=== PATIENT | female | born 1945 | race African-American/Black ===

== ENCOUNTER 2025-04-03 19:47 | Inpatient (IN) | payer MEDICAID, MEDICARE ==
[~2025-04-03] VITALS: Ht 172.7 cm; Wt 86.2 kg
[2025-04-03 19:47] VITALS: PULSE 103; RESP 29; O2SAT 99
[~2025-04-03 19:47] MED LIST: ALBU05 IH; AMIN1CAP5 PO; ASCO100T12 MT; ATROV INH; COLL2POW MC; DOCU-422 MT; FAMO40TA7 PO; GABA250S11 PO; HJ10 IJ; LIP40 MT; METO25TA6 MT; MIDO5TAB4 MT
[2025-04-03 19:51] VITALS: O2SAT 99
[2025-04-03] MEDS ORDERED: CEFEPIME 1GM IN DEXT 5% 50ML IV ONE (20:00)
[2025-04-03] MEDS: SODIUM CHLORIDE 0.9% (SEPSIS BOLUS) IV ONE (20:18)
[2025-04-03 20:23] LABS: HEMATOCRIT. 33.3 % (36.0-48.0); HEMOGLOBIN. 12.1 g/dL (12.0-16.0); MEAN PLATELET VOLUME 10.5 fl (7.4-10.4); PLATELET 121 x1000/uL (130-400); RED BLOOD CELL COUNT 3.25 mill/uL (4.2-5.4); RED CELL DISTRIBUTION WIDTH 15.1 % (11.6-14.6)
[2025-04-03] MEDS: CEFEPIME 1GM PREMIX 50ML IV SCH (20:25)
[2025-04-03 20:41] LABS: UREA NITROGEN BLOOD 42 mg/dL (9-23)
[2025-04-03 20:42] LABS: ASPARTATE AMINOTRANSFERASE 35 IU/L (<34)
[2025-04-03 20:43] LABS: BILIRUBIN DIRECT 0.3 mg/dL (<=3.0); BILIRUBIN TOTAL 0.7 mg/dL (0.1-1.0); CREATININE 1.8 mg/dL (0.6-1.0); PROTEIN TOTAL 6.6 g/dL (6.0-8.3)
[2025-04-03 20:49] LABS: TROPONIN I HIGH SENSITIVITY 1004 ng/L (3.0-34)
[2025-04-03] MEDS: VANCOMYCIN 1G PREMIX 200 ML IV ONE (20:57)
[2025-04-03] MEDS ORDERED: CEFEPIME 1GM/50ML 50 ML IV SCH (21:00)
[2025-04-03 21:20] LABS: INFLUENZA TYPE A Presumptive Negative (Pres. Neg.)
[2025-04-03 21:21] LABS: INFLUENZA TYPE B Presumptive Negative (Pres. Neg.); RESPIRATORY SYNCYTIAL VIRUS Not Detected (Not Detectd)
[2025-04-03] MEDS: NOREPINEPHRINE 8MG/250ML PMX 250 ML IV ONE (21:55)
[2025-04-03 23:19] LABS: BAND% 8.0 % (1.0-6.0); LYMPHOCYTES % MANUAL 7.0 % (20.0-60.0); MONOCYTES % MANUAL 9.0 % (2.0-8.0); NEUTROPHILS % MANUAL 76.0 % (45.0-75.0); PLATELET ESTIMATE NORMAL
[2025-04-04] VITALS (100 sets, daily range): BP systolic 66–126; BP diastolic 51–93; PULSE 44–115; RESP 16–31; TEMP 36.3–37; O2SAT 82–100
[2025-04-04] MEDS ORDERED: ONDANSETRON HCL 4MG/2ML INJ IV PRN
[2025-04-04] MEDS ORDERED: ACETAMINOPHEN 650MG/20.3ML UDC GT PRN
[2025-04-04] MEDS ORDERED: DEXTROSE 50% WATER 50ML SYRINGE IV PRN
[2025-04-04] MEDS ORDERED: GUAIFENESIN 200MG/10ML SUGAR FREE UDC PO PRN
[2025-04-04] MEDS ORDERED: CLONIDINE 0.1MG TABLET PO PRN
[2025-04-04] MEDS ORDERED: DOCUSATE SODIUM 100MG CAPSULE PO PRN
[2025-04-04] MEDS ORDERED: CEFEPIME 2GM/100ML 100 ML IV SCH
[2025-04-04 00:40] LABS: INR 1.2
[2025-04-04 00:47] LABS: TROPONIN I HIGH SENSITIVITY 1196 ng/L (3.0-34)
[2025-04-04 01:08] LABS: CREATININE 1.4 mg/dL (0.6-1.0); TRIGLYCERIDE 97.0 mg/dL (0-150)
[2025-04-04 01:09] LABS: LDL CHOLESTEROL 20.0 mg/dL (5-100); UREA NITROGEN BLOOD 44.0 mg/dL (9-23)
[2025-04-04] MEDS: DEXT 5%/0.45% NACL 1000ML 1,000 ML IV SCH ×2 (02:10→14:29)
[2025-04-04 02:35] LABS: BG BASE EXCESS -2.0 mmol/L (-2.0-3.0); BG CARBOXYHEMOGLOBIN 0.7 % (0.5-1.5); BG DEOXYHEMOGLOBIN 1.7 % (0.0-5.0); BG FRACTION INSPIRED OXYGEN 40; BG HCO3 ACT 23.3 mmol/L (21.0-28.0); BG METHEMOGLOBIN 0.3 % (0.5-1.5); BG OXYGEN SATURATION 98.3 % (94.0-98.0); BG OXYHEMOGLOBIN 97.3 % (94.0-98.0); BG PCO2 41.7 mmHg (32.0-45.0); BG PEEP (cmH2O) 5.0 cmH2O; BG PH 7.365 (7.350-7.450); BG PO2 105.8 mmHg (83.0-108.0); BG SAMPLE SITE RIGHT RADIAL; BG TIDAL VOLUME(mL) 450.0 mL; BG TOTAL HEMOGLOBIN 12.2 g/dL (12.0-16.0); BG VENT MODE VENT - AC; BG VENT RATE 18.0 set
[2025-04-04] MEDS: NOREPINEPHRINE 8MG/250ML PMX 250 ML IV PRN (03:27)
[2025-04-04 04:57] LABS: HEMATOCRIT. 33.8 % (36.0-48.0); HEMOGLOBIN. 11.7 g/dL (12.0-16.0); MEAN PLATELET VOLUME 10.7 fl (7.4-10.4); PLATELET 130 x1000/uL (130-400); RED BLOOD CELL COUNT 3.36 mill/uL (4.2-5.4); RED CELL DISTRIBUTION WIDTH 15.0 % (11.6-14.6)
[2025-04-04 05:00] LABS: CREATININE 1.1 mg/dL (0.6-1.0); UREA NITROGEN BLOOD 38 mg/dL (9-23)
[2025-04-04 05:02] LABS: PHOSPHORUS 2.2 mg/dL (2.5-4.9)
[2025-04-04] MEDS: ENOXAPARIN 80MG/0.8ML SYR SUBCUT SCH (05:04)
[2025-04-04] MEDS: METRONIDAZOLE 500 MG PREMIX 100 ML IV SCH (05:04)
[2025-04-04] MEDS: BLOOD SUGAR DIAGNOSTIC STRIP TEST SCH (05:52)
[2025-04-04] MEDS: INSULIN LISPRO 100 UNITS/ML SUBCUT SCH (06:14)
[2025-04-04] MEDS: MIDODRINE HCL 5MG TABLET GT SCH ×2 (08:00→08:43)
[2025-04-04] MEDS: PANTOPRAZOLE SODIUM 40 MG/VIAL IV SCH ×2 (08:42→20:59)
[2025-04-04] MEDS: HYDROCORTISONE SOD SUCCINATE 100 MG/2 ML VIAL IV NR (08:42)
[2025-04-04] MEDS: SODIUM CHLORIDE 0.9% 1,000 ML IV NR (08:51)
[2025-04-04] MEDS ORDERED: CEFEPIME 1GM PREMIX 50ML IV SCH ×2 (09:00)
[2025-04-04] MEDS: IPRATROPIUM/ALBUTEROL 0.5-3(2.5)MG/3ML NEB HHN PRN (09:06)
[2025-04-04] MEDS: SODIUM PHOSPHATE 10 MMOL in DEXT 5% WATER 246.6667 ML IV NR (10:24)
[2025-04-04 10:34] LABS: T4 FREE 1.25 ng/dL (0.89-1.76)
[2025-04-04] MEDS: ACETAMINOPHEN 650MG/20.3ML UDC GT PRN (10:36)
[2025-04-04 10:37] LABS: CLARITY URINE CLOUDY (CLEAR); COLOR URINE YELLOW (YELLOW); GLUCOSE URINE NEGATIVE (NEGATIVE); KETONES URINE NEGATIVE (NEGATIVE); LEUKOCYTE ESTERASE URINE 2+ (NEGATIVE); NITRITE URINE NEGATIVE (NEGATIVE); OCCULT BLOOD URINE 3+ (NEGATIVE); PH URINE 6.5 (4.5-8.0); PROTEIN URINE 2+ (NEGATIVE); SPECIFIC GRAVITY URINE 1.017 (1.005-1.030); UROBILINOGEN URINE 0.2 E.U./dL (0.2-1.0)
[2025-04-04 11:15] LABS: TROPONIN I HIGH SENSITIVITY 1390 ng/L (3.0-34)
[2025-04-04] MEDS: CEFEPIME 2GM PREMIX 100ML IV SCH (11:55)
[2025-04-04 11:57] LABS: TRIOIODOTHYRONINE TOTAL 1.00 ng/ml (0.60-1.81); VITAMIN B12 SERUM 1209 pg/mL (211-911)
[2025-04-04] MEDS ORDERED: VANCOMYCIN 750MG PMX (XELLIA) 150 ML IV SCH (12:00)
[2025-04-04] MEDS: HYDROCORTISONE SOD SUCCINATE 100 MG/2 ML VIAL IV SCH (12:02)
[2025-04-04 12:08] LABS: COARSE GRANULAR CASTS URINE 0-5 /lpf; WBC URINE 50-100 /hpf (0-2)
[2025-04-04 12:09] LABS: BACTERIA URINE 4+; SQUAMOUS EPITHELIAL CELL URINE 1+ /lpf (RARE/1+); YEAST URINE NONE SEEN
[2025-04-04] MEDS: VANCOMYCIN 750MG PREMIX 150 ML IV NR (12:28)
[2025-04-04] MEDS ORDERED: NALOXONE HCL 0.4MG/ML VIAL IV PRN (13:45)
[2025-04-04] MEDS: MORPHINE SULFATE 2 MG/ML INJ (NOT FOR IM USE) IV PRN (14:29)
[2025-04-04] MEDS ORDERED: PHENYLEPHRINE 50MG/250ML PMX 250 ML IV PRN (17:00)
[2025-04-04] MEDS: SODIUM CHLORIDE 0.9% 1,000 ML IV ONE (17:42)
[2025-04-04] MEDS: DEXT 5%/0.9% NACL 1,000 ML IV SCH (18:05)
[2025-04-04] MEDS: AMIODARONE 150MG/100ML D5W 100 ML IV NR (19:59)
[2025-04-04] MEDS: SODIUM CHLORIDE 0.9% 500 ML IV ONE (20:02)
[2025-04-04] MEDS: AMIODARONE 360MG/200ML 200 ML IV SCH (20:26)
[2025-04-05] VITALS (107 sets, daily range): BP systolic 64–150; BP diastolic 36–107; PULSE 69–105; RESP 20–31; TEMP 36.4–37.4; O2SAT 98–100
[2025-04-05 04:46] LABS: HEMATOCRIT. 30.7 % (36.0-48.0); HEMOGLOBIN. 10.7 g/dL (12.0-16.0); MEAN PLATELET VOLUME 10.4 fl (7.4-10.4); PLATELET 92 x1000/uL (130-400); RED BLOOD CELL COUNT 3.04 mill/uL (4.2-5.4); RED CELL DISTRIBUTION WIDTH 15.5 % (11.6-14.6)
[2025-04-05 04:51] LABS: CREATININE 0.8 mg/dL (0.6-1.0); UREA NITROGEN BLOOD 25 mg/dL (9-23)
[2025-04-05 04:53] LABS: PHOSPHORUS 1.5 mg/dL (2.5-4.9)
[2025-04-05 07:37] LABS: TROPONIN I HIGH SENSITIVITY 1354 ng/L (3.0-34)
[2025-04-05] MEDS ORDERED: NON FORMULARY MED XX SCH (08:30)
[2025-04-05] MEDS: KCL 20MEQ/100ML PREMIX 100 ML IV SCH (09:12)
[2025-04-05] MEDS: SODIUM CHLORIDE 0.9% 1,000 ML IV NR (09:12)
[2025-04-05] MEDS: MAGNESIUM 4 G PREMIX 100 ML IV NR (09:12)
[2025-04-05] MEDS: CALCIUM GLUCONATE 100MG/ML 10ML VIAL IV NR (09:13)
[2025-04-05] MEDS: IRON SUCROSE COMPLEX 100 MG/5 ML ML IV SCH (09:27)
[2025-04-05 09:33] LABS: BG BASE EXCESS -1.9 mmol/L (-2.0-3.0); BG CARBOXYHEMOGLOBIN 0.3 % (0.5-1.5); BG DEOXYHEMOGLOBIN 1.5 % (0.0-5.0); BG FRACTION INSPIRED OXYGEN 40; BG HCO3 ACT 22.9 mmol/L (21.0-28.0); BG METHEMOGLOBIN 0.1 % (0.5-1.5); BG OXYGEN SATURATION 98.5 % (94.0-98.0); BG OXYHEMOGLOBIN 98.1 % (94.0-98.0); BG PCO2 39.2 mmHg (32.0-45.0); BG PEEP (cmH2O) 5.0 cmH2O; BG PH 7.384 (7.350-7.450); BG PO2 103.6 mmHg (83.0-108.0); BG SAMPLE SITE LEFT RADIAL; BG TIDAL VOLUME(mL) 450.0 mL; BG TOTAL HEMOGLOBIN 12.2 g/dL (12.0-16.0); BG VENT MODE VENT - AC; BG VENT RATE 18.0 set
[2025-04-05 10:02] LABS: *AMPHETAMINES SCREEN URINE NEGATIVE (NEGATIVE); *BENZODIAZEPINES SCREEN URINE NEGATIVE (NEGATIVE)
[2025-04-05 10:03] LABS: *BARBITURATES SCREEN URINE NEGATIVE (NEGATIVE); *COCAINE SCREEN URINE NEGATIVE (NEGATIVE); CANNABINOID URINE SCREEN NEGATIVE (NEGATIVE); ECSTASY MDMA SCREEN URINE NEGATIVE (NEGATIVE); METHADONE URINE SCREEN NEGATIVE (NEGATIVE); OPIATES URINE SCREEN PRESUMPTIVE POSITIVE (NEGATIVE); PHENCYCLIDINE URINE SCREEN NEGATIVE (NEGATIVE)
[2025-04-05] MEDS: POTASSIUM PHOSPHATE 30 MMOL in DEXT 5% WATER 490 ML IV NR (10:23)
[2025-04-05 10:46] LABS: TROPONIN I HIGH SENSITIVITY 1617 ng/L (3.0-34)
[2025-04-05] MEDS: POLYETHYLENE GLYCOL 3350 (17GM) 1 DOSE PACK GT SCH (10:57)
[2025-04-05] MEDS: BISACODYL 10MG SUPP PR NR (10:57)
[2025-04-05 11:18] LABS: BAND% 39.0 % (1.0-6.0); LYMPHOCYTES % MANUAL 2.0 % (20.0-60.0); METAMYELOCYTES % 2.0 % (0-0); MONOCYTES % MANUAL 5.0 % (2.0-8.0); MYELOCYTES % 3.0 % (0-0); NEUTROPHILS % MANUAL 49.0 % (45.0-75.0); PLATELET ESTIMATE NORMAL
[2025-04-05 11:22] LABS: BAND% 39.0 % (1.0-6.0); LYMPHOCYTES % MANUAL 3.0 % (20.0-60.0); MONOCYTES % MANUAL 1.0 % (2.0-8.0); NEUTROPHILS % MANUAL 57.0 % (45.0-75.0); PLATELET ESTIMATE DECREASED
[2025-04-05] MEDS: NA PHOS,M-B/NA PHOS,DI-BA ENEMA 118ML PR NR (12:00)
[2025-04-05] MEDS: VANCOMYCIN 750MG PMX (XELLIA) 150 ML IV SCH (12:14)
[2025-04-05 13:11] LABS: FOLATE HEMATOCRIT 38.0 % (34.0-46.6); FOLATE HEMOLYSATE 431.0 ng/mL (Not Estab.); FOLATE RBC 1134 ng/mL (>498)
[2025-04-05] MEDS: SODIUM CHLORIDE 0.9% 1,000 ML IV ONE ×2 (14:19→17:44)
[2025-04-05 15:26] LABS: PHOSPHORUS 2.5 mg/dL (2.5-4.9)
[2025-04-05] MEDS: MEROPENEM 1G/100ML 100 ML IV SCH (18:22)
[2025-04-05] MEDS: SENNOSIDES/DOCUSATE SOD 8.6/50MG TABLET GT SCH (20:58)
[2025-04-06] VITALS (98 sets, daily range): BP systolic 97–144; BP diastolic 62–118; PULSE 91–136; RESP 24–33; TEMP 36.2–37.6; O2SAT 97–100
[2025-04-06 06:41] LABS: UREA NITROGEN BLOOD 10 mg/dL (9-23)
[2025-04-06 06:42] LABS: FOLIC ACID (FOLATE) SERUM > 20.00 ng/mL (>5.38)
[2025-04-06 06:45] LABS: ASPARTATE AMINOTRANSFERASE 30 IU/L (<34); BILIRUBIN DIRECT 0.3 mg/dL (<=3.0); BILIRUBIN TOTAL 0.5 mg/dL (0.1-1.0); PHOSPHORUS 1.5 mg/dL (2.5-4.9); PROTEIN TOTAL 5.8 g/dL (6.0-8.3)
[2025-04-06 07:14] LABS: CREATININE 0.5 mg/dL (0.6-1.0)
[2025-04-06 08:29] LABS: HEMATOCRIT. 37.3 % (36.0-48.0); HEMOGLOBIN. 11.5 g/dL (12.0-16.0); MEAN PLATELET VOLUME 10.7 fl (7.4-10.4); PLATELET 73 x1000/uL (130-400); RED BLOOD CELL COUNT 3.94 mill/uL (4.2-5.4); RED CELL DISTRIBUTION WIDTH 16.9 % (11.6-14.6)
[2025-04-06] MEDS: SODIUM PHOSPHATE 30 MMOL in DEXT 5% WATER 490 ML IV NR (09:25)
[2025-04-06 10:04] LABS: BAND% 19.0 % (1.0-6.0); LYMPHOCYTES % MANUAL 1.0 % (20.0-60.0); MONOCYTES % MANUAL 3.0 % (2.0-8.0); NEUTROPHILS % MANUAL 77.0 % (45.0-75.0); PLATELET ESTIMATE DECREASED
[2025-04-06] MEDS: SODIUM CHLORIDE 0.9% 1,000 ML IV ONE ×3 (10:10→19:57)
[2025-04-06] MEDS: DIGOXIN 500MCG/2ML AMP IV SCH (19:47)
[2025-04-06] MEDS: AMIODARONE 360MG/200ML 200 ML IV SCH (20:11)
[2025-04-07] VITALS (18 sets, daily range): BP systolic 90–118; BP diastolic 61–96; PULSE 72–96; RESP 17–28; TEMP 36.7–37.8; O2SAT 100
[2025-04-07 07:40] LABS: HEMATOCRIT. 33.5 % (36.0-48.0); HEMOGLOBIN. 10.7 g/dL (12.0-16.0); MEAN PLATELET VOLUME 10.8 fl (7.4-10.4); PLATELET 63 x1000/uL (130-400); RED BLOOD CELL COUNT 3.52 mill/uL (4.2-5.4); RED CELL DISTRIBUTION WIDTH 16.0 % (11.6-14.6)
[2025-04-07 07:59] LABS: UREA NITROGEN BLOOD 6 mg/dL (9-23)
[2025-04-07 08:01] LABS: PHOSPHORUS 1.1 mg/dL (2.5-4.9)
[2025-04-07 08:27] LABS: CREATININE 0.3 mg/dL (0.6-1.0)
[2025-04-07] MEDS: POTASSIUM CHLORIDE 20MEQ TABLET SR PO SCH (10:06)
[2025-04-07] MEDS: DEXT 5%/0.45% NACL 1000ML 1,000 ML IV SCH (10:07)
[2025-04-07] MEDS: POTASSIUM PHOSPHATE 30 MMOL in SODIUM CHLORIDE 0.9% 490 ML IV ONE (10:30)
[2025-04-07] MEDS: AMIODARONE 360MG/200ML 200 ML IV SCH (10:56)
[2025-04-07] MEDS: MAGNESIUM 1 G PREMIX 100 ML IV ONE (11:15)
[2025-04-07] MEDS: CALCIUM GLUCONATE 100MG/ML 10ML VIAL IV NR (11:49)
[2025-04-07] MEDS ORDERED: ROCURONIUM BROMIDE 10MG/ML VIAL 5ML IV ONE (13:18)
[2025-04-07] MEDS ORDERED: FENTANYL CITRATE/PF 50MCG/ML 2ML VIAL ONE (13:18)
[2025-04-07] MEDS ORDERED: CALCIUM CHLORIDE 1GM/10ML SYR IV ONE (13:42)
[2025-04-07] MEDS ORDERED: ONDANSETRON HCL 4MG/2ML INJ ONE (13:42)
[2025-04-07] MEDS: SODIUM CHLORIDE 0.45% 1,000 ML IV ONE (17:13)
[2025-04-07 17:35] LABS: UREA NITROGEN BLOOD 6 mg/dL (9-23)
[2025-04-07 17:37] LABS: PHOSPHORUS 1.1 mg/dL (2.5-4.9)
[2025-04-07 17:41] LABS: CREATININE 0.4 mg/dL (0.6-1.0)
[2025-04-07 20:42] LABS: LYMPHOCYTES % MANUAL 6.0 % (20.0-60.0); MONOCYTES % MANUAL 10.0 % (2.0-8.0); NEUTROPHILS % MANUAL 84.0 % (45.0-75.0); PLATELET ESTIMATE DECREASED
[2025-04-08] VITALS (23 sets, daily range): BP systolic 87–108; BP diastolic 56–68; PULSE 76–91; RESP 20–29; TEMP 36.4–37.2; O2SAT 96–100
[2025-04-08] MEDS: POTASSIUM PHOSPHATE 30 MMOL in DEXT 5% WATER 490 ML IV SCH (05:38)
[2025-04-08 08:18] LABS: BASOPHILS % 0.1 % (0.0-2.0); EOSINOPHILS % 2.1 % (0.0-5.0); HEMATOCRIT. 27.0 % (36.0-48.0); HEMOGLOBIN. 9.7 g/dL (12.0-16.0); LYMPHOCYTES % 7.7 % (20.0-50.0); MEAN PLATELET VOLUME 10.8 fl (7.4-10.4); MONOCYTES % 11.3 % (2.0-8.0); NEUTROPHILS % 78.8 % (40.0-76.0); PLATELET 71 x1000/uL (130-400); RED BLOOD CELL COUNT 2.71 mill/uL (4.2-5.4); RED CELL DISTRIBUTION WIDTH 15.6 % (11.6-14.6)
[2025-04-08 08:30] LABS: CREATININE 0.4 mg/dL (0.6-1.0); UREA NITROGEN BLOOD 6 mg/dL (9-23)
[2025-04-08 08:32] LABS: PHOSPHORUS 1.7 mg/dL (2.5-4.9)
[2025-04-08] MEDS ORDERED: POTASSIUM CHLORIDE 20MEQ TABLET SR PO PRN (09:00)
[2025-04-09] VITALS (20 sets, daily range): BP systolic 98–133; BP diastolic 65–83; PULSE 80–102; RESP 23–33; TEMP 36.7–37.4; O2SAT 90–100
[2025-04-09] MEDS: DEXTROSE 5% WATER 1,000 ML IV SCH (01:14)
[2025-04-09 05:37] LABS: CREATININE 0.3 mg/dL (0.6-1.0)
[2025-04-09 05:38] LABS: UREA NITROGEN BLOOD < 5 mg/dL (9-23)
[2025-04-09 05:40] LABS: PHOSPHORUS 1.2 mg/dL (2.5-4.9)
[2025-04-09 08:35] LABS: BASOPHILS % 0.4 % (0.0-2.0); EOSINOPHILS % 2.5 % (0.0-5.0); HEMATOCRIT. 32.3 % (36.0-48.0); HEMOGLOBIN. 10.4 g/dL (12.0-16.0); LYMPHOCYTES % 10.1 % (20.0-50.0); MEAN PLATELET VOLUME 10.6 fl (7.4-10.4); MONOCYTES % 10.0 % (2.0-8.0); NEUTROPHILS % 77.0 % (40.0-76.0); PLATELET 103 x1000/uL (130-400); RED BLOOD CELL COUNT 3.63 mill/uL (4.2-5.4); RED CELL DISTRIBUTION WIDTH 15.5 % (11.6-14.6)
[2025-04-09] MEDS: MEROPENEM 1G/100ML 100 ML IV SCH (18:08)
[2025-04-10] VITALS (22 sets, daily range): BP systolic 100–112; BP diastolic 62–79; PULSE 77–96; RESP 20–28; TEMP 36.6–37.1; O2SAT 95–100
[2025-04-10 08:41] LABS: BASOPHILS % 0.6 % (0.0-2.0); EOSINOPHILS % 2.5 % (0.0-5.0); HEMATOCRIT. 32.1 % (36.0-48.0); HEMOGLOBIN. 10.4 g/dL (12.0-16.0); LYMPHOCYTES % 11.5 % (20.0-50.0); MEAN PLATELET VOLUME 12.1 fl (7.4-10.4); MONOCYTES % 8.4 % (2.0-8.0); NEUTROPHILS % 77.0 % (40.0-76.0); PLATELET 210 x1000/uL (130-400); RED BLOOD CELL COUNT 3.62 mill/uL (4.2-5.4); RED CELL DISTRIBUTION WIDTH 15.4 % (11.6-14.6)
[2025-04-11] VITALS (21 sets, daily range): BP systolic 84–113; BP diastolic 58–73; PULSE 73–99; RESP 17–28; TEMP 37.6–38; O2SAT 85–100
[2025-04-11 05:17] LABS: CREATININE 0.3 mg/dL (0.6-1.0)
[2025-04-11 05:18] LABS: UREA NITROGEN BLOOD 5 mg/dL (9-23)
[2025-04-11 08:30] LABS: BASOPHILS % 0.4 % (0.0-2.0); EOSINOPHILS % 2.3 % (0.0-5.0); HEMATOCRIT. 31.2 % (36.0-48.0); HEMOGLOBIN. 10.2 g/dL (12.0-16.0); LYMPHOCYTES % 11.6 % (20.0-50.0); MEAN PLATELET VOLUME 10.1 fl (7.4-10.4); MONOCYTES % 6.5 % (2.0-8.0); NEUTROPHILS % 79.2 % (40.0-76.0); PLATELET 187 x1000/uL (130-400); RED BLOOD CELL COUNT 3.53 mill/uL (4.2-5.4); RED CELL DISTRIBUTION WIDTH 15.1 % (11.6-14.6)
[2025-04-11] MEDS: FERROUS SULFATE 300MG/5ML UDC PEG SCH (08:55)
[2025-04-11] MEDS: ASCORBIC ACID 250 MG TABLET PEG SCH (08:55)
[2025-04-12] VITALS (18 sets, daily range): BP systolic 88–108; BP diastolic 59–69; PULSE 66–87; RESP 16–27; TEMP 37.2–38.4; O2SAT 96–100
[2025-04-12] MEDS: MEROPENEM 1G/100ML 100 ML IV SCH (13:55)
[2025-04-13] VITALS (24 sets, daily range): BP systolic 85–111; BP diastolic 45–73; PULSE 65–102; RESP 15–31; TEMP 37.1–37.9; O2SAT 97–100
[2025-04-14] VITALS (19 sets, daily range): BP systolic 86–108; BP diastolic 60–70; PULSE 67–85; RESP 18–30; TEMP 36.2–37.4; O2SAT 98–100
== END 2025-04-14 19:27 | DRG 870 ==
LOC: ER 19:47 → MICUSO 23:11 → EDBEDREQTM 23:18 → EDBEDREQSVC 23:18 → EDBEDREQ 23:18 → ENRESERV 04-04 00:59 → 5EST 04-06 23:46
PROVIDERS: ADMIT Internal Medicine; ATTEND Internal Medicine
PROC: 5A1955Z Respiratory Ventilation, Greater than 96 Consecutive Hours (ICD-10-PCS; principal; 2025-04-03)
PROC: 02HV33Z Insertion of Infusion Device into Superior Vena Cava, Percutaneous Approach (ICD-10-PCS; 2025-04-06)
PROC: B548ZZA Ultrasonography of Superior Vena Cava, Guidance (ICD-10-PCS; 2025-04-06)
PROC: 0TCB8ZZ Extirpation of Matter from Bladder, Via Natural or Artificial Opening Endoscopic (ICD-10-PCS; 2025-04-07)
PROC: 0TC78ZZ Extirpation of Matter from Left Ureter, Via Natural or Artificial Opening Endoscopic (ICD-10-PCS; 2025-04-07)
DX: A41.59 Other Gram-negative sepsis (principal); G93.41 Metabolic encephalopathy; J96.21 Acute and chronic respiratory failure with hypoxia; R65.21 Severe sepsis with septic shock; I21.A1 Myocardial infarction type 2; N17.0 Acute kidney failure with tubular necrosis; J15.69 Pneumonia due to other Gram-negative bacteria; I21.4 Non-ST elevation (NSTEMI) myocardial infarction; R53.2 Functional quadriplegia; I50.32 Chronic diastolic (congestive) heart failure; E87.0 Hyperosmolality and hypernatremia; E87.20 Acidosis, unspecified; N13.6 Pyonephrosis; Z99.11 Dependence on respirator [ventilator] status; Z16.12 Extended spectrum beta lactamase (ESBL) resistance; Z20.822 Contact with and (suspected) exposure to COVID-19; R62.7 Adult failure to thrive; Z74.01 Bed confinement status; N21.0 Calculus in bladder; I11.0 Hypertensive heart disease with heart failure; D69.6 Thrombocytopenia, unspecified; I48.0 Paroxysmal atrial fibrillation; E11.65 Type 2 diabetes mellitus with hyperglycemia; K21.9 Gastro-esophageal reflux disease without esophagitis; R13.12 Dysphagia, oropharyngeal phase; Z93.1 Gastrostomy status; E83.39 Other disorders of phosphorus metabolism; K56.41 Fecal impaction; I25.10 Atherosclerotic heart disease of native coronary artery without angina pectoris; E83.42 Hypomagnesemia; D53.9 Nutritional anemia, unspecified; E78.5 Hyperlipidemia, unspecified; Z88.0 Allergy status to penicillin; Z79.899 Other long term (current) drug therapy
CPT/HCPCS: 31720; 36415; 36556; 36573; 36600; 71045; 74018; 74176; 74420; 76000; 80048; 80061; 80076; 80202; 80305; 81003; 82024; 82270; 82360; 82375; 82533; 82550; 82607; 82728; 82746; 82747; 82805; 82962; 83036; 83540; 83550; 83605; 83735; 83880; 83930; 84100; 84145; 84439; 84443; 84480; 84484; 85014; 85018; 85025; 85044; 86022; 86850; 86900; 87070; 87077; 87186; 87420; 87426; 87804; 88300; 93005; 93970; 94002; 94003; 94070; 94640; 94664; 99285; A4606; A6261; C1725; C1769; J0282; J0612; J0692; J1160; J1650; J1720; J1815; J2185; J2270; J2405; J2470; J3010; J3373; J3475; J3480; J3490; J7030; J7040; J7042; J7060; J7070; C1889